=== PATIENT | male | born 2000 | race Caucasian/White ===

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

== ENCOUNTER 2018-04-03 22:33 | Emergency (ER) | payer MEDICAID, OTHER ==
[~2018-04-03] VITALS: Ht 177.8 cm; Wt 68.0 kg
[2018-04-03 22:38] VITALS: BP 135/69; PULSE 81; RESP 16; TEMP 98.4; O2SAT 96
--- NOTE | 2018-04-04 | PD ---
HPI Chief Complaint: Cold / Flu Symptoms Time Seen by Provider: 00:00 Travel History International Travel<30 days: No Contact w/Intl Traveler<30days: No Traveled to known affect area: No History of Present Illness HPI 17-year-old male came to the emergency room with history of sore throat that started this morning. Patient says that it is quite painful to swallow and the irritation and the scratching sensation is making him cough. He also noticed that his right lower quadrant of the abdomen started to hurt after an hour of noticing the sore throat. He has had many strep throats in the past but they have not been this painful and he did need to come to the emergency room. No history of fever or chills. No history of nausea vomiting. No history of sick contacts. 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 Vital signs are otherwise stable. He has noticed some hoarseness of his voice as well. Patient chews tobacco but does not smoke. [facility] Past Medical History Narrative Medical List of his past medical, surgical, social and family history is reviewed from the nursing note Diminished Hearing: No Immunizations Current: Yes (UTD) Seizures: Yes (2 AT AGE 13) Tetanus Vaccination: Unknown Influenza Vaccination: No Past Surgical History Other Surgery: Yes (CYST REMOVED FROM RIGHT LOWER BACK) Social History Alcohol Use: Yes (RARE) Tobacco Use: Yes (CHEWING TOBACCO) Substance Use: No Allergies-Medications (Allergen,Severity, Reaction): Coded Allergies: No Known Allergies (Unverified Adverse Reaction, Unknown, 04/03/18) Comments No known drug allergies. Reported Meds & Prescriptions Reported Meds & Active Scripts Active No Active Prescriptions or Reported Medications Narrative Medication List of his home medications reviewed from the nursing note. Review of Systems Except as stated in HPI: all other systems reviewed are Neg HENT: Positive: Sore Throat Gastrointestinal: Positive: Abdominal Pain Physical Exam Narrative GENERAL: Awake, alert, moderate to SKIN: Focused skin assessment warm/dry. HEAD: Atraumatic. Normocephalic. EYES: Pupils equal and round. No scleral icterus. No injection or drainage. ENT: No nasal bleeding or discharge. Mucous membranes pink and moist. Posterior pharynx erythematous but no exudate, uvula looks erythematous as well. NECK: Trachea midline. No JVD. CARDIOVASCULAR: Regular rate and rhythm. No murmur appreciated. RESPIRATORY: No accessory muscle use. Clear to auscultation. Breath sounds equal bilaterally. GASTROINTESTINAL: Abdomen soft, right lower quadrant tenderness, nondistended. Hepatic and splenic margins not palpable. MUSCULOSKELETAL: No obvious deformities. No clubbing. No cyanosis. No edema. NEUROLOGICAL: Awake and alert. No obvious cranial nerve deficits. Motor grossly within normal limits. Normal speech. PSYCHIATRIC: Appropriate mood and affect; insight and judgment normal. Data Data Last Documented VS Vital Signs Date Time Temp Pulse Resp B/P (MAP) Pulse Ox O2 Delivery O2 Flow Rate FiO2 04/04/18 01:15 58 16 118/70 (86) 100 Room Air 04/03/18 22:38 98.4 Orders Orders Complete Blood Count With Diff (04/04/18:15) Comprehensive Metabolic Panel (04/04/18:15) Urinalysis - C+S If Indicated (04/04/18:15) Iv Access Insert/Monitor (04/04/18:15) Ecg Monitoring (04/04/18:15) Oximetry (04/04/18:15) Sodium Chlor 0.9% 1000 Ml Inj (Ns 1000 M (04/04/18 00:15) Sodium Chloride 0.9% Flush (Ns Flush) (04/04/18:15) Ketorolac Inj (Toradol Inj) (04/04/18 00:15) C-Reactive Protein (Crp) (04/04/18 00:15) Group A Rapid Strep Screen (04/04/18:15) Strep Culture (Group A) (04/04/18 00:35) Ed Discharge Order (04/04/18 01:12) Dexamethasone Inj (Decadron Inj) (04/04/18 01:15) Labs Laboratory Tests Test 04/04/18 00:35 04/04/18 00:45 Urine Color YELLOW Urine Turbidity CLEAR Urine pH 6.0 Urine Specific [place] 1.025 Urine Protein NEG mg/dL Urine Glucose (UA) NEG mg/dL Urine Ketones NEG mg/dL Urine Occult Blood NEG Urine Nitrite NEG Urine Bilirubin NEG Urine Urobilinogen 0.2 MG/DL Urine Leukocyte Esterase NEG Urine RBC 0-2 /hpf Urine WBC 0-2 /hpf Urine Squamous Epithelial Cells 0-5 /hpf Urine Bacteria NONE /hpf Microscopic Urinalysis Comment CULT NOT INDICATED White Blood Count 7.1 TH/MM3 Red Blood Count 4.64 MIL/MM3 Hemoglobin 13.7 GM/DL Hematocrit 40.9 % Mean Corpuscular Volume 88.1 FL Mean Corpuscular Hemoglobin 29.6 PG Mean Corpuscular Hemoglobin Concent 33.6 % Red Cell Distribution Width 11.9 % Platelet Count 262 TH/MM3 Mean Platelet Volume 8.4 FL Neutrophils (%) (Auto) 50.7 % Lymphocytes (%) (Auto) 34.7 % Monocytes (%) (Auto) 12.0 % Eosinophils (%) (Auto) 1.9 % Basophils (%) (Auto) 0.7 % Neutrophils # (Auto) 3.8 TH/MM3 Lymphocytes # (Auto) 2.4 TH/MM3 Monocytes # (Auto) 0.8 TH/MM3 Eosinophils # (Auto) 0.1 TH/MM3 Basophils # (Auto) 0.0 TH/MM3 CBC Comment DIFF FINAL Differential Comment Blood Urea Nitrogen 16 MG/DL Creatinine 0.99 MG/DL Random Glucose 95 MG/DL Total Protein 7.1 GM/DL Albumin 4.0 GM/DL Calcium Level 8.9 MG/DL Alkaline Phosphatase 92 U/L Aspartate Amino Transf (AST/SGOT) 21 U/L Alanine Aminotransferase (ALT/SGPT) 28 U/L Total Bilirubin 0.3 MG/DL Sodium Level 141 MEQ/L Potassium Level 4.1 MEQ/L Chloride Level 107 MEQ/L Carbon Dioxide Level 26.8 MEQ/L Anion Gap 7 MEQ/L Estimat Glomerular Filtration Rate 97 ML/MIN C-Reactive Protein LESS THAN 0.29 MG/DL [facility] Medical Decision Making Medical Screen Exam Complete: Yes Emergency Medical Condition: Yes Medical Record Reviewed: Yes Differential Diagnosis Strep throat, viral pharyngitis, allergic pharyngitis, acute appendicitis Narrative Course 12:21 AM awaiting for blood test and rapid strep throat. Patient is getting IV fluid bolus and IV Toradol for pain. 1 AM Test results are back and WNL. I will DC him.. Procedures EKG Prior to Arrival: No Diagnosis Primary Impression: Viral pharyngitis Additional Impression: Abdominal pain Qualified Codes: R10.31 - Right lower quadrant pain Referrals: Primary Care Physician Additional Instructions: Return to the ER if condition worsens any other new concerns. Otherwise follow- up with your primary care. Clear liquid diet for next 24 hours. If abdominal symptoms worsen and/or vomiting/fever then please return to the ER. He can take Tylenol/ibuprofen/Motrin/Advil for pain which is available over-the- counter. Scripts No Active Prescriptions or Reported Meds Disposition: 01 DISCHARGE HOME Condition: Stable Michelle Coreas MD Apr 04, 2018 00:00
[2018-04-04] MEDS ORDERED: SODIUM CHLOR 0.9% 1000 ML INJ 1,000 ML IV SCH (00:15)
[2018-04-04] MEDS ORDERED: SODIUM CHLORIDE 0.9% FLUSH 10 ML FLUSH IV FLUSH PRN (00:15)
[2018-04-04] MEDS ORDERED: KETOROLAC TROMETHAMINE 30 MG/ML (IVP) VIAL IVP ONE (00:15)
[2018-04-04 00:30] VITALS: RESP 16; O2SAT 100
[2018-04-04 00:56] LABS: AUTOMATED NEUTROPHIL # 3.8 TH/MM3 (1.8-7.7); BASOPHIL % 0.7 % (0.0-2.0); EOSINOPHIL # 0.1 TH/MM3 (0-0.4); EOSINOPHIL % 1.9 % (0.0-4.0); HEMATOCRIT 40.9 % (39.0-51.0); HEMOGLOBIN 13.7 GM/DL (13.0-17.0); LYMPH % 34.7 % (9.0-44.0); LYMPHOCYTE # 2.4 TH/MM3 (1.0-4.8); MEAN CELL VOLUME 88.1 FL (80.0-100.0); MEAN CORPUSCULAR HEMOGLOBIN 29.6 PG (27.0-34.0); MEAN CORPUSCULAR HGB CONC 33.6 % (32.0-36.0); MEAN PLATELET VOLUME 8.4 FL (7.0-11.0); MONOCYTE # 0.8 TH/MM3 (0-0.9); NEUT % 50.7 % (16.0-70.0); PLATELET COUNT 262 TH/MM3 (150-450); RED BLOOD COUNT 4.64 MIL/MM3 (4.50-5.90); RED CELL DISTRIBUTION WIDTH 11.9 % (11.6-17.2); WHITE BLOOD COUNT 7.1 TH/MM3 (4.0-11.0)
[2018-04-04 00:58] LABS: BILIRUBIN, URINE NEG (NEG); BLOOD, URINE NEG (NEG); GLUCOSE,URINE NEG (NEG); KETONE, URINE NEG (NEG); NITRITE,URINE NEG (NEG); URINE COLOR YELLOW (YELLW/STRAW); URINE LEUKOCYTE ESTERASE NEG (NEG)
[2018-04-04 01:03] LABS: CHLORIDE 107 MEQ/L (98-107); SODIUM (NA) 141 MEQ/L (136-145)
[2018-04-04 01:03] LABS: RBC, URINE 0-2 /hpf (0-3); SQUAMOUS EPITHELIAL CELL URINE 0-5 /hpf (0-5); WBC, URINE 0-2 /hpf (0-5)
[2018-04-04 01:07] LABS: BICARBONATE 26.8 MEQ/L (21.0-32.0); BLOOD UREA NITROGEN 16 MG/DL (7-18); CALCIUM 8.9 MG/DL (8.5-10.1); GLUCOSE,RANDOM 95 MG/DL (74-106)
[2018-04-04 01:10] LABS: ALT (GPT) 28 U/L (9-52); AST (GOT) 21 U/L (15-39); C-REACTIVE PROTEIN LESS THAN 0.29 MG/DL (0.00-0.30); CREATININE 0.99 MG/DL (0.60-1.30); GLOMERULAR FILTRATION RATE 97 ML/MIN (>89)
[2018-04-04 01:12] LABS: TOTAL BILIRUBIN ADULT 0.3 MG/DL (0.2-1.0); TOTAL PROTEIN 7.1 GM/DL (6.4-8.2)
[2018-04-04 01:13] LABS: ALKALINE PHOSPHATASE 92 U/L (45-117)
[2018-04-04 01:15] VITALS: BP 118/70; PULSE 58; RESP 16; O2SAT 100
[2018-04-04] MEDS ORDERED: DEXAMETHASONE SOD PHOS 20 MG/5 ML VIAL IV PUSH ONE (01:15)
== END 2018-04-04 01:38 | disposition home or self-care (01) ==
LOC: PHEFT 22:33
DX: J02.9 Acute pharyngitis, unspecified (principal); R10.31 Right lower quadrant pain; Z72.0 Tobacco use
CPT/HCPCS: 80053; 81001; 85025; 86140; 87081; 87880; 96374; 96375; 99284; J1100; J1885; J7030